=== PATIENT | male | born 1975 | race Caucasian/White ===

== ENCOUNTER 2019-10-13 00:56 | Emergency (ER) | payer SELFPAY ==
[2019-10-13 01:46] LABS: #Basophils 0.1 thou/uL (0.0-0.2); #Eosinphils 0.1 thou/uL (0.0-0.7); #Lymphocytes 1.6 thou/uL (1.20-3.40); #Monocytes 0.4 thou/uL (0.11-0.59); #Neutrophils 2.9 thou/uL (1.40-6.50); %Basophils 1.2 % (0.0-1.0); %Eosinophils 1.7 % (0.0-10.0); %Lymphocytes 31.5 % (21.0-51.0); %Monocytes 8.4 % (0.0-10.0); %Neutrophils 57.2 % (42.0-75.0); Hemoglobin 13.1 g/dL (14.0-18.0); Mean Corpuscular Hemoglobin 29.4 pg (27.0-31.0); Mean Platelet Volume 8.3 fL (7.4-10.4); Platelet Count 112 thou/uL (130-400); RBC Distribution Width 13.4 % (11.5-14.5); Red Blood Cell (RBC) Count 4.47 mill/uL (4.70-6.10)
[2019-10-13 02:06] LABS: ALT (SGPT) 26 U/L (8-55); AST (SGOT) 79 U/L (5-34); Albumin 4.8 g/dL (3.5-5.0); Alcohol 271 mg/dL (Less than 10); Alkaline Phosphatase 85 U/L (40-110); Anion Gap 13 mmol/L (10-20); BUN (Urea Nitrogen) 11 mg/dL (8.9-20.6); Bilirubin, Total 2.2 mg/dL (0.2-1.2); Calc. Creatinine Clearance 0 mL/min (70-130); Carbon Dioxide 27 mmol/L (22-29); Chloride 94 mmol/L (98-107); Estimated GFR-MDRD 84; Globulin 3.2 g/dL (2.4-3.5); Glucose 82 mg/dL (70-105); Lipase 113 U/L (8-78); Potassium 4.1 mmol/L (3.5-5.1); Sodium 130 mmol/L (136-145)
[2019-10-13] MEDS ORDERED: methylPREDNISolone Sod Succ/PF 125 MG/2 ML VIAL ONE (02:08)
[2019-10-13] MEDS ORDERED: diphenhydrAMINE 50 MG/ML VIAL ONE (02:08)
[2019-10-13] MEDS ORDERED: Famotidine/PF 20 mg/2ml Vial ONE (02:09)
[2019-10-13] MEDS ORDERED: Pantoprazole 40 MG VIAL ONE (02:10)
--- NOTE | 2019-10-13 07:48 | CT ---
PRELIMINARY REPORT/[facility]/EMERGENCY AFTER HOURS PROCEDURE FINAL REPORT EMERGENT AFTER HOURS CT OF THE CHEST WITH CONTRAST: FINDINGS/IMPRESSION: I agree with the findings and impression given in the preliminary report per [facility] physici an. No evidence of acute intrathoracic abnormality. POS: [id number]
[2019-10-13] MEDS ORDERED: Iopamidol 370 76% 100 ML VIAL ONE (10:25)
== END 2019-10-13 03:34 | disposition home or self-care (01) ==
LOC: ERS 00:56
DX: F10.129 Alcohol abuse with intoxication, unspecified (principal); Z87.891 Personal history of nicotine dependence; Z79.899 Other long term (current) drug therapy
CPT/HCPCS: 36415; 71260; 80053; 80307; 83690; 85025; 86850; 86900; 86901; 93005; 96361; 96374; 96375; C9113; J1200; J2930; Q9967; S0028